=== PATIENT | female | born 1930 | race Native Hawaiian/Other Pacific Islander ===

== ENCOUNTER 2016-08-12 10:49 | Inpatient (IN) | payer OTHER ==
[~2016-08-12] VITALS: Ht 160 cm; Wt 70.8 kg
[2016-08-12] VITALS (17 sets, daily range): BP systolic 84–128; BP diastolic 50–96; TEMP 97.6–98.2; Ht 160 cm; Wt 70.8 kg
[~2016-08-12 10:49] MED LIST: AMLO2.5T PO; DONE5TAB PO; METOPROLOL25 M1 PO; VITAMIN D400 UNI1 PO
[2016-08-12 14:26] LABS: PLATELET COUNT 128 K/uL (152-353)
[2016-08-12 14:46] LABS: POTASSIUM 3.6 mmol/L (3.6-5.2)
[2016-08-13] VITALS (24 sets, daily range): BP systolic 99–150; BP diastolic 61–86; TEMP 98–98.3
[2016-08-13] MEDS ORDERED: ESCI10TA PO (03:13)
[2016-08-13] MEDS ORDERED: PANT40TA PO (03:20)
[2016-08-13] MEDS ORDERED: METAMUCIL0.52 GM PO (03:22)
[2016-08-13] MEDS ORDERED: ARIP10TA PO (03:27)
[2016-08-13] MEDS ORDERED: BENZ1TAB43 PO (03:30)
[2016-08-13] MEDS ORDERED: NAMENDA10 MG OR ×2 (03:32→03:33)
[2016-08-13] MEDS ORDERED: GABA300C2 PO (03:35)
[2016-08-13] MEDS ORDERED: ALUMSUS6 PO (03:39)
[2016-08-13] MEDS ORDERED: TYLENOL325 MG OR (03:46)
[2016-08-13] MEDS ORDERED: MAGNSUS68 PO (03:49)
[2016-08-13] MEDS ORDERED: EMOLOIN22 TOP (03:50)
[2016-08-13] MEDS ORDERED: PAIN RELIEF650 MG PO (03:58)
[2016-08-13] MEDS ORDERED: ZIPR20IN IM (04:02)
[2016-08-13] MEDS ORDERED: TRAM50TA PO (04:05)
[2016-08-13 07:06] LABS: PLATELET COUNT 159 K/uL (152-353)
[2016-08-13 08:20] LABS: POTASSIUM 3.5 mmol/L (3.6-5.2)
[2016-08-14] VITALS (22 sets, daily range): BP systolic 98–136; BP diastolic 51–107; TEMP 97.6–98.6
[2016-08-14 06:53] LABS: PLATELET COUNT 156 K/uL (152-353)
[2016-08-14 07:02] LABS: POTASSIUM 3.3 mmol/L (3.6-5.2)
[2016-08-15] VITALS (11 sets, daily range): BP systolic 104–151; BP diastolic 60–81; TEMP 97.6–98
[2016-08-15 06:52] LABS: PLATELET COUNT 191 K/uL (152-353)
[2016-08-15 06:57] LABS: POTASSIUM 3.3 mmol/L (3.6-5.2)
[2016-08-16] VITALS: BP 122/71; TEMP 98.3
[2016-08-16 04:00] VITALS: BP 141/64; TEMP 97.9
[2016-08-16 04:57] LABS: PLATELET COUNT 233 K/uL (152-353)
[2016-08-16 05:41] LABS: POTASSIUM 3.9 mmol/L (3.6-5.2)
[2016-08-16 08:00] VITALS: BP 152/68; TEMP 98.1
[2016-08-16 12:00] VITALS: BP 137/65; TEMP 98.1
[2016-08-16 16:00] VITALS: BP 160/86; TEMP 99.3
[2016-08-16 20:16] VITALS: BP 163/62; TEMP 98.3
[2016-08-17 00:21] VITALS: BP 160/58; TEMP 98
[2016-08-17 04:00] VITALS: BP 143/74; BP 148/61; TEMP 97.6
[2016-08-17 05:11] LABS: PLATELET COUNT 278 K/uL (152-353)
[2016-08-17 05:29] LABS: POTASSIUM 3.7 mmol/L (3.6-5.2)
[2016-08-17 08:00] VITALS: BP 138/76; TEMP 97.8
[2016-08-17 12:00] VITALS: BP 150/75; TEMP 97.7
[2016-08-17 16:00] VITALS: BP 136/76; TEMP 99.5
[2016-08-17 20:10] VITALS: BP 153/71; TEMP 98.8
[2016-08-18 00:05] VITALS: BP 148/62; TEMP 99.8
[2016-08-18 05:00] VITALS: BP 135/71; TEMP 98.9
[2016-08-18 05:35] LABS: PLATELET COUNT 283 K/uL (152-353)
[2016-08-18 05:59] LABS: POTASSIUM 3.6 mmol/L (3.6-5.2)
[2016-08-18 12:00] VITALS: BP 108/57; TEMP 101.1
[2016-08-18 16:00] VITALS: BP 132/62; TEMP 99.1
[2016-08-18 20:00] VITALS: BP 135/64; TEMP 99
[2016-08-19 00:25] VITALS: BP 156/78; TEMP 98
[2016-08-19 05:39] VITALS: BP 143/71; TEMP 99
[2016-08-19 06:15] LABS: PLATELET COUNT 288 K/uL (152-353)
[2016-08-19 06:32] LABS: POTASSIUM 3.4 mmol/L (3.6-5.2); SODIUM 137 mmol/L (136-145)
[2016-08-19 08:15] VITALS: BP 159/55; TEMP 98.6
[2016-08-19 12:00] VITALS: BP 126/52; TEMP 98.1
[2016-08-19 16:00] VITALS: BP 116/55; TEMP 98.2
[2016-08-19 20:00] VITALS: BP 145/64; TEMP 98.3
[2016-08-20] VITALS: BP 150/68; TEMP 98.1
[2016-08-20 04:00] VITALS: BP 141/60; TEMP 98.5
[2016-08-20 05:46] LABS: PLATELET COUNT 295 K/uL (152-353)
[2016-08-20 08:00] VITALS: BP 144/54; TEMP 98.3
[2016-08-20 12:00] VITALS: BP 116/66; TEMP 98.2
== END 2016-08-20 13:20 | disposition home or self-care (01) | DRG 884 ==
LOC: MED/SURG 10:49 → ICU 10:49 → MED/SURG 08-15 22:20
PROVIDERS: ADMIT Emergency Medicine
DX: F03.90 Unspecified dementia, unspecified severity, without behavioral disturbance, psychotic disturbance, mood disturbance, and anxiety (principal); N39.0 Urinary tract infection, site not specified; K21.9 Gastro-esophageal reflux disease without esophagitis; I10 Essential (primary) hypertension; M81.8 Other osteoporosis without current pathological fracture; I95.89 Other hypotension; E86.0 Dehydration; R79.89 Other specified abnormal findings of blood chemistry; D64.89 Other specified anemias; E16.1 Other hypoglycemia; E83.42 Hypomagnesemia; B95.7 Other staphylococcus as the cause of diseases classified elsewhere; R41.82 Altered mental status, unspecified; S01.81XA Laceration without foreign body of other part of head, initial encounter; W05.0XXA Fall from non-moving wheelchair, initial encounter; Y93.89 Activity, other specified; Y92.238 Other place in hospital as the place of occurrence of the external cause
CPT/HCPCS: 36415; 51702; 80053; 81000; 83735; 84100; 85027; 87077; 87086; 87088; 87185; 87186; 96372; J0515; J1650; J1940; J1956; J3475; J3480